=== PATIENT | female | born 1930 | race Caucasian/White ===

== ENCOUNTER 2016-11-11 14:48 | Emergency (ER) | payer MEDICARE, BC ==
[2016-11-11] MEDS ORDERED: Sodium Chloride 0.9% 2.5 ML Syringe FLUSH PRN (14:58)
[2016-11-11] MEDS ORDERED: Albuterol/Ipratropium 3.0-0.5 MG/3 ML Neb Soln NEB ONE (14:58)
[2016-11-11] MEDS ORDERED: Sodium Chloride 0.9% 10 ML Syringe FLUSH PRN (14:58)
[2016-11-11] MEDS ORDERED: methylPREDNISolone Sodium Succinate 125 MG/2 ML SDV IVPUSH ONE (14:58)
[2016-11-11] MEDS ORDERED: Ketorolac 30 MG/ML SDV IVPUSH ONE (15:00)
--- NOTE | 2016-11-11 15:05 | EDM.PDOC ---
ED HPI GENERAL MEDICAL PROBLEM - General Stated Complaint: TROUBLE BREATHING Time Seen by Provider: 11/11/16 14:57 - History of Present Illness INITIAL COMMENTS - FREE TEXT/NARRATIVE: HISTORY AND PHYSICAL: History of present illness: The patient is an 86-year-old female with a history of hypertension who does not have a provider here with our clinics or any set provider and presents with daughter for complaints of pleuritic right-sided chest pain and feeling short of breath which has been ongoing for the last 1 week. According to the daughter it seemed to worsen the last 5 days and she was seen 5 days ago at the ER in [place] and had a blood test no x-rays and was diagnosed with pleurisy and placed on Percocet. According to the daughter the patient self diagnosed herself and the provider agreed with her. The daughter says that symptoms she is experiencing now have occurred in the past over the last 2-3 years and she feels it all started after a flu shot 2-3 years ago and since that time she has had episodic pleuritic chest pain increased work or breathing and wheezing for which she has never received a proper diagnosis. The patient denies any pulmonary or cardiac history and has no chest pain on the left side. She says that earlier last week she was having pain all over her chest but it is more localized to the lateral right side now. She has no abdominal pain no vomiting or diarrhea and the daughter says she does have a dry hacking-like cough and she intermittently will sound like she is wheezing. The patient denies any flank pain and has had no falls recently. Patient has been eating and drinking normally and has not had a fever sore throat or runny nose. She has no leg pain or swelling. The daughter states that the symptoms she is experiencing now are very similar to all of her other episodes and she is concerned because she felt like she has not been treated appropriately with either anti-inflammatories or steroids. The daughter is also concerned because the patient is very active and often goes on the treadmill and she has not been able to do that. The daughter tells me that she has had generalized aches and pains as well as the chest wall discomfort. Review of systems: As per history of present illness and below otherwise all systems reviewed and negative. Past medical history: As per history of present illness and as reviewed below otherwise noncontributory. Surgical history: As per history of present illness and as reviewed below otherwise noncontributory. Social history: No reported history of drug or alcohol abuse. Family history: As per history of present illness and as reviewed below otherwise noncontributory. Physical exam: Gen.: Well-developed well-nourished female who is very hard of hearing but is answering questions appropriately and is not breathless on my evaluation. Her vital signs of the note by me. She moves easily in the ED without distress. Patient is very hard of hearing. On my evaluation the patient will intermittently have some exaggerated breathing but when she is distracted with questioning or performing aspects of the physical exam her breathing normalizes when she is not paying attention to it. HEENT: Atraumatic, normocephalic, pupils reactive, negative for conjunctival pallor or scleral icterus, mucous membranes moist, throat clear, neck supple, nontender, trachea midline. Lungs: Clear to auscultation with good air exchange no wheezing no stridor and no worker breathing, breath sounds equal bilaterally, chest nontender. Heart: S1S2, regular rate and rhythm no overt murmurs Abdomen: Soft, nondistended, nontender. Globular abdomen normoactive bowel sounds Negative for masses or hepatosplenomegaly. Negative for costovertebral tenderness. Pelvis: Stable nontender. Genitourinary: Deferred. Rectal: Deferred. Extremities: Atraumatic, negative for cords or calf pain. Neurovascular unremarkable. No pedal edema or no leg asymmetry Neuro: Awake, alert, oriented. Cranial nerves II through XII unremarkable. Cerebellum unremarkable. Motor and sensory unremarkable throughout. Exam nonfocal. Skin: No diaphoresis normal turgor and no evidence of any overt rashes or lesions. More specifically on the right chest wall I do not see any rashes Diagnostics: EKG chest x-ray CBC CMP troponin Therapeutics: IV O2 monitor Solu-Medrol duo neb Toradol Blood pressure currently at 1620 p.m. is 152/89. 1650: There is great variability with BP readings that I have noticed while the patient has been in the ER depending on who is interacting with the patient's and her overall level of demeanor and or stressors. I discussed the blood pressure with her daughter and the patient and state that she is on a very low dose of her medication that can probably be either adjusted or if she is particularly sensitive to that drug, possibly change to something she can tolerate better to get better control. I strongly advised to go the daughter and the patient that she get follow-up in our clinic as they both seem very unsatisfied with the providers that are locally near their home (near [place]). I discussed all testing results with them and the patient overall says she feels much improved after the nebulizer treatment Toradol and steroids. I will prescribe a short burst of prednisone for 5 days and also give her an inhaler via [employer] with spacer to use as needed through the night until tomorrow. We will also start her on anti-inflammatories, diclofenac EC 50 mg for discomfort as an alternative for the Percocet that she has. I told her that she may need more testing going forward and further evaluation of this care plan in the next few days. Daughter states she will contact the clinic tomorrow to set up that follow-up appointment and to address these issues as well as her blood pressure. Impression: Right chest pain, pleuritic chest pain/bronchospasm improved stable Definitive disposition and diagnosis as appropriate pending reevaluation and review of above. Right Chest Pain Score (Numeric/FACES): 9 - Related Data Allergies Allergy/AdvReac Type Severity Reaction Status Date / Time No Known Allergies Allergy Verified 11/11/16 14:58 Home Meds: Home Meds amLODIPine Besylate [Norvasc] 1 tab PO DAILY 11/11/16 [History] oxyCODONE HCl/Acetaminophen [oxyCODONE-Acetaminophen 5-325] 1 tab PO Q4H PRN 02/27 [History] ED ROS GENERAL - Review of Systems Review Of Systems: ROS reveals no pertinent complaints other than HPI. ED EXAM, GENERAL - Physical Exam Exam: See Below (See dictation) Course - Vital Signs Last Recorded V/S: Last Vital Signs Temp 36.3 C 11/11/16 15:02 Pulse 83 11/11/16 15:02 Resp 24 H 11/11/16 15:02 BP 178/107 H 11/11/16 15:02 Pulse Ox 98 11/11/16 15:02 - Orders/Labs/Meds Orders: Active Orders 24 hr Category Date Time Status Cardiac Monitoring [RC] . DIRECTED Care 11/11/16 14:58 Active Communication Order [RC] STAT Care 11/11/16 16:51 Active EKG Documentation Completion [RC] STAT Care 11/11/16 14:58 Active Oxygen Therapy, ED [RC] ASDIRECTED Care 11/11/16 14:58 Active Pulse Oximetry [RC] ASDIRECTED Care 11/11/16 14:58 Active RT Aerosol Therapy [RC] ASDIRECTED Care 11/11/16 15:00 Active Chest 2V [CR] Stat Exams 11/11/16 14:58 Taken Sodium Chloride 0.9% [Saline Flush] Med 11/11/16 14:58 Active 10 ml FLUSH ASDIRECTED PRN Sodium Chloride 0.9% [Saline Flush] Med 11/11/16 14:58 Active 2.5 ml FLUSH ASDIRECTED PRN Saline Lock Insert [OM.PC] Stat Oth 11/11/16 14:58 Ordered Medication Orders Sodium Chloride (Saline Flush) 10 ml FLUSH ASDIRECTED PRN PRN Reason: Keep Vein Open Last Admin: 11/11/16 15:27 Dose: 10 ml Sodium Chloride (Saline Flush) 2.5 ml FLUSH ASDIRECTED PRN PRN Reason: Keep Vein Open Last Admin: 11/11/16 15:27 Dose: 2.5 ml Labs: Laboratory Tests 11/11/16 11/11/16 11/11/16 Range/Units 15:20 15:20 15:20 WBC 4.85 (4.0-11.0) K/uL RBC 4.47 (4.30-5.90) M/uL Hgb 13.9 (12.0-16.0) g/dL Hct 41.1 (36.0-46.0) % MCV 91.9 (80.0-98.0) fL MCH 31.1 (27.0-32.0) pg MCHC 33.8 (31.0-37.0) g/dL RDW Std Deviation 44.5 (28.0-62.0) fl RDW Coeff of Libby 13 (11.0-15.0) % Plt Count 225 (150-400) K/uL MPV 9.00 (7.40-12.00) fL Neut % (Auto) 61.0 (48.0-80.0) % Lymph % (Auto) 28.7 (16.0-40.0) % Hettinger % (Auto) 9.1 (0.0-15.0) % Eos % (Auto) 1.0 (0.0-7.0) % Baso % (Auto) 0.2 (0.0-1.5) % Neut # (Auto) 3.0 (1.4-5.7) K/uL Lymph # (Auto) 1.4 (0.6-2.4) K/uL Hettinger # (Auto) 0.4 (0.0-0.8) K/uL Eos # (Auto) 0.1 (0.0-0.7) K/uL Baso # (Auto) 0.0 (0.0-0.1) K/uL Nucleated RBC % 0.0 /100WBC Nucleated RBCs # 0 K/uL Sodium 139 (136-146) mmol/L Potassium 4.7 (3.5-5.1) mmol/L Chloride 106 (98-110) mmol/L Carbon Dioxide 23 (21-31) mmol/L BUN 14 (6.0-23.0) mg/dL Creatinine 0.9 (0.6-1.5) mg/dL Est Cr Clr Drug Dosing TNP Estimated GFR (MDRD) 59.5 ml/min Glucose 91 (60-110) mg/dL Calcium 10.0 (8.8-10.8) mg/dL Total Bilirubin 0.6 (0.1-1.5) mg/dL AST 27 (5-40) IU/L ALT 24 (8-54) IU/L Alkaline Phosphatase 118 (40-150) Troponin I < 0.10 (0.0-0.29) NG/ML Total Protein 7.1 (6.0-8.0) g/dL Albumin 4.1 (3.4-4.8) g/dL Globulin 3.0 (2.0-3.5) g/dL Albumin/Globulin Ratio 1.4 (1.3-2.8) Meds: Medications Generic Name Dose Route Start Last Admin Trade Name Freq PRN Reason Stop Dose Admin Sodium Chloride 10 ml 11/11/16 14:58 11/11/16 15:27 Saline Flush FLUSH 10 ml ASDIRECTED PRN Administration Keep Vein Open Sodium Chloride 2.5 ml 11/11/16 14:58 11/11/16 15:27 Saline Flush FLUSH 2.5 ml ASDIRECTED PRN Administration Keep Vein Open Discontinued Medications Generic Name Dose Route Start Last Admin Trade Name Neto PRN Reason Stop Dose Admin Albuterol/Ipratropium 3 ml 11/11/16 14:58 11/11/16 15:31 Duoneb 3.0-0.5 Mg/3 Ml NEB 11/11/16 14:59 3 ml ONETIME ONE Administration Ketorolac Tromethamine 15 mg 11/11/16 15:00 11/11/16 15:26 Toradol IVPUSH 11/11/16 15:01 15 mg ONETIME ONE Administration Methylprednisolone Sodium Succinate 125 mg 11/11/16 14:58 11/11/16 15:26 Solu-Medrol IVPUSH 11/11/16 14:59 125 mg ONETIME ONE Administration Departure - Departure Time of Disposition: 17:01 Disposition: Home, Self-Care 01 Condition: Good Clinical Impression: Right-sided chest wall pain, Pleuritic chest pain, Bronchospasm - Discharge Information Referrals: PCP,None [Primary Care Provider] - Additional Instructions: The following information is given to patients seen in the emergency department who are being discharged to home. This information is to outline your options for follow-up care. We provide all patients seen in our emergency department with a follow-up referral. The need for follow-up, as well as the timing and circumstances, are variable depending upon the specifics of your emergency department visit. If you don't have a primary care physician on staff, we will provide you with a referral. We always advise you to contact your personal physician following an emergency department visit to inform them of the circumstance of the visit and for follow-up with them and/or the need for any referrals to a consulting specialist. The emergency department will also refer you to a specialist when appropriate. This referral assures that you have the opportunity for followup care with a specialist. All of these measure are taken in an effort to provide you with optimal care, which includes your followup. Under all circumstances we always encourage you to contact your private physician who remains a resource for coordinating your care. When calling for followup care, please make the office aware that this follow-up is from your recent emergency room visit. If for any reason you are refused follow-up, please contact the [facility] emergency department at and ask to speak to the emergency department charge nurse. [facility] Primary care- Internal Medicine and Family [place] [id number] [place] [id number] These contact the clinic tomorrow morning to schedule a follow-up this week as we discussed. Please use the inhaler that you have been given every 4-6 hours as needed using the spacer. Please fill your prescriptions for prednisone and diclofenac and use as directed. Return to the ER as needed and as discussed - My Orders Last 24 Hours: My Active Orders 11/11/16 14:58 Cardiac Monitoring [RC] . DIRECTED EKG Documentation Completion [RC] STAT Oxygen Therapy, ED [RC] ASDIRECTED Pulse Oximetry [RC] ASDIRECTED Chest 2V [CR] Stat Sodium Chloride 0.9% [Saline Flush] 10 ml FLUSH ASDIRECTED PRN Sodium Chloride 0.9% [Saline Flush] 2.5 ml FLUSH ASDIRECTED PRN Saline Lock Insert [OM.PC] Stat 11/11/16 15:00 RT Aerosol Therapy [RC] ASDIRECTED 11/11/16 16:51 Communication Order [RC] STAT - Assessment/Plan Last 24 Hours: My Active Orders 11/11/16 14:58 Cardiac Monitoring [RC] . DIRECTED EKG Documentation Completion [RC] STAT Oxygen Therapy, ED [RC] ASDIRECTED Pulse Oximetry [RC] ASDIRECTED Chest 2V [CR] Stat Sodium Chloride 0.9% [Saline Flush] 10 ml FLUSH ASDIRECTED PRN Sodium Chloride 0.9% [Saline Flush] 2.5 ml FLUSH ASDIRECTED PRN Saline Lock Insert [OM.PC] Stat 11/11/16 15:00 RT Aerosol Therapy [RC] ASDIRECTED 11/11/16 16:51 Communication Order [RC] STAT
[2016-11-11 15:47] LABS: CHLORIDE,CL 106 mmol/L (98-110); SODIUM,NA 139 mmol/L (136-146)
[2016-11-11 19:42] VITALS: BP 173/114
--- NOTE | 2016-11-12 15:23 | CR ---
EXAM DATE: 11/11/16 PATIENT'S AGE: 86 Patient: DA ZUNIGA Facility: [place], [place] Site . Site : [id number] Study: XRay Chest [id number] 4:13:10 PM Ordering Physician: Doctor Rahman Final Report: INDICATION: pain, sob INDICATION: Pain, shortness of breath. TECHNIQUE: Chest 2 views. COMPARISON: 07/20/2010. FINDINGS: Cardiovascular and mediastinum: Heart size and vasculature are normal in caliber and appearance. Mediastinum is within normal limits. Lungs and pleural spaces: Lungs are clear. No sign of infiltrate or mass. No sign of pleural effusion. No pneumothorax. Bones and soft tissues: Multilevel degenerative disc disease in the thoracic spine, with disc height loss and vertebral body height loss. This is stable. IMPRESSION: Lungs are clear. Dictated by David Linda MD @ 11/11/2016 4:37:35 PM Dictated by: David Linda MD @ 11/11/2016 16:37:44 (Electronic Signature) Report Signed by Proxy. [facility]
== END 2016-11-11 17:23 | disposition home or self-care (01) ==
LOC: MW.ED 14:48
DX: J98.01 Acute bronchospasm (principal)
CPT/HCPCS: 36415; 71020; 80053; 84484; 85025; 93005; 94640; 96374; 96375; 99285; J1885; J2930; 99284

== ENCOUNTER 2020-06-04 13:05 | Emergency (ER) | payer MEDICARE, BC ==
[2020-06-04] MEDS ORDERED: Tetracaine HCl/PF 0.5% 4 ML Bottle EYELF ONE (13:49)
[2020-06-04] MEDS ORDERED: Erythromycin Base 0.5% Ophth Oint 1 GM Tube EYEBOTH ONE (14:28)
--- NOTE | 2020-06-04 14:28 | EDM.PDOC ---
ED HPI GENERAL MEDICAL PROBLEM - General Chief Complaint: Eye Problems Stated Complaint: LT swollen eye Time Seen by Provider: 06/04/20 13:07 Source of Information: Reports: Patient, Family History Limitations: Reports: Other (Hard of hearing) - History of Present Illness INITIAL COMMENTS - FREE TEXT/NARRATIVE: HISTORY AND PHYSICAL: History of present illness: The patient is an 89-year-old female who presents to the emergency room with complaints of left eye pain, redness, swelling which has been going on for over a week. She has a history of dry eye and on the family consulted with Dr. North the staff technologist regarding treatment. Dr. Milligan prescribed prednisone ophthalmic drops for the patient. The daughter is at the bedside as the patient is hard of hearing and reports her father indicated that after he put the first steroid drops and the swelling became worse. Patient had only mild irritation but woke up during the night with pain in her left eye. Except for the prednisone and refresh eyedrops they have not attempted any other comfort measures. Patient denies any fever, chills, change in vision, syncope or near syncope. Denies any chest pain, back pain, shortness of breath or cough. Denies any abdominal pain, nausea, vomiting, diarrhea, constipation or dysuria. Has not noted any blood in urine or stool. Patient has been eating and drinking appropriately. Review of systems: As per history of present illness and below otherwise all systems reviewed and negative. Past medical history: As per history of present illness and as reviewed below otherwise noncontributory. Surgical history: As per history of present illness and as reviewed below otherwise noncontributory. Social history: See social history for further information Family history: As per history of present illness and as reviewed below otherwise noncontributory. Physical exam: General: Well developed and well nourished. Alert and orientated x 3. Nontoxic i n appearance and in no acute distress. Vital signs are stable and have been reviewed by me. Nursing notes were reviewed. HEENT: Atraumatic, normocephalic, pupils equal and reactive bilaterally, upper and lower edematous eyelids, left eye with chemosis and erythema. Increase conjunctival swelling from the 9 O'clock to 3 O'clock position. mucous membranes moist, Right eye normal in appearance. TMs normal bilaterally, VENETIE, throat clear, neck supple, nontender, trachea midline. No drooling or trismus noted. No meningeal signs. No hot potato voice noted. Lungs: Clear to auscultation bilaterally. No wheezes, rales, or rhonchi. Chest nontender. Normal work of breathing, no accessory muscles used. Heart: S1S2, regular rate and rhythm without overt murmur, gallops, or rubs. No JVD. Right ankle 2+ edema. Abdomen: Soft, nondistended, nontender. Normoactive bowel sounds. Negative for masses or costovertebral tenderness. Skin: Intact, warm, dry. No lesions or rashes noted. Hematologic: No petechiae or purpra. Mucosa appropriate color and normal nail bed color and refill. Extremities: Atraumatic, moves all extremities per self without difficulty or deficits, negative for cords or calf pain. Neurovascular unremarkable. Neuro: Awake, alert, oriented. Cranial nerves II through XII unremarkable. Cerebellum unremarkable. Motor and sensory unremarkable throughout. Exam nonfocal. Psychiatric: Mood and affect are appropriate. Normal thought process. Answering questions appropriately. Notes: *This patient was seen and evaluated during the 2019 SARS-CoV-2 novel coronavirus pandemic period. Community viral transmission is ongoing at time of this encounter and the emergency department is operating under pandemic response procedures. After discussion and examination the patient and daughter is agreeable to tetracaine ophthalmic drops, fluorescein stain and lynch light, and tonometry. I numbed the patient's left eye with tetracaine ophthalmic drops, stained the left eye with fluorescein, I did not appreciate an abrasion with the Lynch light. Tonometry reading was 8. The daughter stated that Dr. North had said he had never seen such dry eyes in anyone. I consulted with Dr. Rosas from [facility], who advised erythromycin ointment to left eye 4 times a day until follow-up with Dr. North. He advised follow-up to be on Saturday. He also stated the family is more than welcome to bring the patient to the [facility] and Dr. Rosas would see the patient there or if they had questions they could call the [facility] hotline and he can talk to them on the phone. I will start the erythromycin in the emergency department. The patient and daughter is agreeable to the plan. I have talked with the patient about today's findings, in addition to providing specific details for plan of care. Reassessment at the time of disposition demonstrates that the patient is in no acute distress. The patient is stable for discharge, counseling was provided and we discussed in great detail signs and symptoms that would prompt them to return to the Emergency Department. Medication, follow up and supportive care measures were reviewed and discussed. Voices understanding and is agreeable to plan of care. Denies any further questions or concerns at this time. Diagnostics:Fluorescein stain Therapeutics:Tetracaine Prescription:Erythromycin Ophthalmic Oint QID left eye Impression: Chemosis left eye, Conjunctivitis Plan: 1. You were evaluated today on an emergent basis. Your left eye pain, swelling and redness was evaluated. Dr. Rosas, staff technologist, was consulted and advised to use erythromycin ophthalmic ointment 4 times a day until follow-up with Dr. North. Please follow up with Dr. North on Saturday. You can use artificial tears in between the erythromycin applications. If you want to have follow-up prior to Saturday you can go to [facility] not Dr. Rosas will see the patient in the emergency department you can also call the [facility] hotline and he will talk with you over the phone. Stop the prednisone. You can use cool compress compresses as needed for comfort. 2. You can alternate Tylenol and ibuprofen as needed for pain and fever management. 3. We encourage you to follow up with your primary care provider and/or recommended specialist in the next few days for re-evaluation and further care/management. 4. If your symptoms should worsen, new symptoms develop or any of the signs and symptoms we discussed should arise please return to the emergency room or call 911 (if needed). Definitive disposition and diagnosis as appropriate pending reevaluation and review of above. - Related Data Allergies Allergy/AdvReac Type Severity Reaction Status Date / Time No Known Allergies Allergy Verified 06/04/20 13:35 Home Meds: Home Meds Calcium Carb, Citrate/Vit D3 [Calcium + D3 ER Tablet] 1 tab PO DAILY 06/04/20 [History] Carboxymethylcellulos/Glycerin [Refresh Relieva 0.5-0.9% Drop] 1 drop EYELF ASDIRECTED 06/04/20 [History] Erythromycin Base [Erythromycin 0.5% Ophth Oint] 1 applic OP Q4H #1 tube 06/04/20 [Rx] Losartan Potassium 25 mg PO DAILY 06/04/20 [History] Losartan Potassium 25 mg PO DAILY 06/04/20 [History] Prednisolon Mila 06/04/20 [History] dilTIAZem HCL [Cardizem Cd] 180 mg PO DAILY 06/04/20 [History] Past Medical History Cardiovascular History: Reports: Hypertension Respiratory History: Reports: Other (See Below) Other Respiratory History: pleurisy Social & Family History - Family History Family Medical History: No Pertinent Family History - Caffeine Use Caffeine Use: Reports: None - Recreational Drug Use Recreational Drug Use: No ED ROS GENERAL - Review of Systems Review Of Systems: Comprehensive ROS is negative, except as noted in HPI. ED EXAM GENERAL W FULL EYE - Physical Exam Exam: See Below (See dictation) Course - Vital Signs Last Recorded V/S: Last Vital Signs Temp 97.8 F 06/04/20 13:32 Pulse 79 06/04/20 14:46 Resp 16 06/04/20 14:46 BP 132/70 06/04/20 14:46 Pulse Ox 97 06/04/20 14:46 - Orders/Labs/Meds Meds: Medications Discontinued Medications Generic Name Dose Route Start Last Admin Trade Name Freq PRN Reason Stop Dose Admin Erythromycin 1 gm 06/04/20 14:28 06/04/20 14:49 Erythromycin Base 0.5% Ophth Oint 1 Gm Tube EYEBOTH 06/04/20 14:29 1 gm ONETIME ONE Administration Tetracaine HCl 1 ml 06/04/20 13:49 06/04/20 13:54 Tetracaine Hcl/Pf 0.5% 4 Ml Bottle EYELF 06/04/20 13:50 1 drop ASDIRECTED ONE Administration Departure - Departure Time of Disposition: 14:36 Disposition: Home, Self-Care 01 Condition: Good Clinical Impression: Chemosis of conjunctiva Qualifiers: Laterality: left Qualified Code(s): H11.422 - Conjunctival edema, left eye Conjunctivitis Qualifiers: Conjunctivitis type: acute Acute conjunctivitis type: unspecified - Discharge Information *PRESCRIPTION DRUG MONITORING PROGRAM REVIEWED*: Not Applicable *COPY OF PRESCRIPTION DRUG MONITORING REPORT IN PATIENT YOLIE: Not Applicable Prescriptions: Erythromycin Base [Erythromycin 0.5% Ophth Oint] 1 applic OP Q4H #1 tube Instructions: Bacterial Conjunctivitis, Adult, [id number]-Szup Referrals: Riki Zuñiga MD [Primary Care Provider] - Forms: ED Department Discharge Additional Instructions: The following information is given to patients seen in the emergency department who are being discharged to home. This information is to outline your options for follow-up care. We provide all patients seen in our emergency department with a follow-up referral. The need for follow-up, as well as the timing and circumstances, are variable depending upon the specifics of your emergency department visit. If you don't have a primary care physician on staff, we will provide you with a referral. We always advise you to contact your personal physician following an emergency department visit to inform them of the circumstance of the visit and for follow-up with them and/or the need for any referrals to a consulting specialist. The emergency department will also refer you to a specialist when appropriate. This referral assures that you have the opportunity for follow-up care with a specialist. All of these measure are taken in an effort to provide you with optimal care, which includes your follow-up. Under all circumstances we always encourage you to contact your private physician who remains a resource for coordinating your care. When calling for follow-up care, please make the office aware that this follow-up is from your recent emergency room visit. If for any reason you are refused follow-up, please contact the [facility] Emergency Department at and asked to speak to the emergency department charge nurse. [facility] - Primary Care [address] [place] [id number] [id number] Plan: 1. You were evaluated today on an emergent basis. Your left eye pain, swelling and redness was evaluated. Dr. Rosas, staff technologist, was consulted and advised to use erythromycin ophthalmic ointment 4 times a day until follow-up with Dr. North. Please follow up with Dr. North on Saturday. You can use artificial tears in between the erythromycin applications. If you want to have follow-up prior to Saturday you can go to [facility] not Dr. Rosas will see the patient in the emergency department you can also call the [facility] hotline and he will talk with you over the phone. Stop the prednisone. You can use cool compress compresses as needed for comfort. 2. You can alternate Tylenol and ibuprofen as needed for pain and fever management. 3. We encourage you to follow up with your primary care provider and/or recommended specialist in the next few days for re-evaluation and further care/management. 4. If your symptoms should worsen, new symptoms develop or any of the signs and symptoms we discussed should arise please return to the emergency room or call 911 (if needed). Sepsis Event Note (ED) - Evaluation Sepsis Screening Result: No Definite Risk - Focused Exam Vital Signs: Vital Signs Temp Pulse Resp BP Pulse Ox 06/04/20 14:46 79 16 132/70 97 06/04/20 14:08 80 16 117/66 95 06/04/20 13:32 97.8 F 78 16 131/68 95
[2020-06-04 14:46] VITALS: BP 132/70; PULSE 79
== END 2020-06-04 14:53 | disposition home or self-care (01) ==
LOC: MW.ED 13:05
DX: H11.422 Conjunctival edema, left eye (principal); H10.9 Unspecified conjunctivitis; I10 Essential (primary) hypertension; Z79.899 Other long term (current) drug therapy
CPT/HCPCS: 99283; A9270